=== PATIENT | male | born 1985 | race Two or more races ===

== ENCOUNTER 2020-06-21 18:01 | Emergency (ER) | payer SELFPAY ==
[~2020-06-21] VITALS: Ht 172.7 cm; Wt 82.0 kg
[2020-06-21 18:56] VITALS: BP 132/64
== END 2020-06-21 18:58 | disposition home or self-care (01) ==
LOC: ER 18:01
DX: Z48.02 Encounter for removal of sutures (principal)
CPT/HCPCS: 99282